=== PATIENT | female | born 1975 | race Caucasian/White ===

== ENCOUNTER 2023-04-26 11:54 | Emergency (ER) | payer BC ==
[2023-04-26 12:00] VITALS: BP 102/53; PULSE 98; RESP 18; TEMP 97; BMI 23.9
[2023-04-26] MEDS ORDERED: CYCLOBENZAPRINE HCL 10 MG TABLET (FP) PO ONE (12:35)
[2023-04-26] MEDS ORDERED: LIDOCAINE 4% PATCH TP ONE ×2 (12:35→12:50)
[2023-04-26] MEDS ORDERED: CYCLOBENZAPRINE HCL 10 MG TABLET (FP) ONE (12:50)
[2023-04-26] MEDS ORDERED: LIDOCAINE PATCH REMOVAL MC SCH (22:00)
== END 2023-04-26 13:02 | disposition home or self-care (01) ==
LOC: JERFT 11:54 → JER 11:54 → JERFT 13:02
DX: M54.50 Low back pain, unspecified (principal)
CPT/HCPCS: 99283-25